=== PATIENT | male | born 1975 | race African-American/Black ===

== ENCOUNTER 2021-11-05 19:20 | Emergency (ER) | payer BC ==
[2021-11-05 20:53] LABS: ANION GAP 9.2 mEq/L (7-13); CHLORIDE,CL 99 mmol/L (98-107); SODIUM,NA 132 mmol/L (136-145)
[2021-11-05] MEDS ORDERED: Butorphanol 2 MG/ML SDV IVPUSH ONE (20:53)
[2021-11-05 21:08] LABS: METHAMPHETAMINES,URINE NEGATIVE (NEGATIVE)
[2021-11-05 21:09] LABS: AMPHETAMINES,URINE NEGATIVE (NEGATIVE); BARBITURATES,URINE NEGATIVE (NEGATIVE); BENZODIAZEPINE,URINE NEGATIVE (NEGATIVE); MDMA (ECSTASY), URINE NEGATIVE (NEGATIVE); METHADONE,URINE NEGATIVE (NEGATIVE); OPIATES,URINE NEGATIVE (NEGATIVE); OXYCODONE,URINE NEGATIVE (NEGATIVE); PHENCYCLIDINE,URINE NEGATIVE (NEGATIVE); TCA,URINE NEGATIVE (NEGATIVE)
== END 2021-11-05 22:19 | disposition home or self-care (01) ==
LOC: DL.ED 19:20
DX: G43.909 Migraine, unspecified, not intractable, without status migrainosus (principal); I11.0 Hypertensive heart disease with heart failure; E78.00 Pure hypercholesterolemia, unspecified; I50.9 Heart failure, unspecified; I25.2 Old myocardial infarction; Z95.5 Presence of coronary angioplasty implant and graft; Z79.82 Long term (current) use of aspirin; Z79.02 Long term (current) use of antithrombotics/antiplatelets; Z72.0 Tobacco use
CPT/HCPCS: 36415; 70450; 80053; 80305-QW; 81001; 85025; 96374; 99284-25; J0595

== ENCOUNTER 2021-11-18 11:55 | Emergency (ER) | payer BC, MEDICAID ==
[2021-11-18] MEDS ORDERED: Ketorolac 30 MG/ML SDV IM ONE (12:33)
[2021-11-18] MEDS ORDERED: Ondansetron 4 MG Tab.DIS PO ONE (12:35)
== END 2021-11-18 12:58 | disposition home or self-care (01) ==
LOC: DL.ED 11:55
DX: G43.909 Migraine, unspecified, not intractable, without status migrainosus (principal); I11.0 Hypertensive heart disease with heart failure; I50.9 Heart failure, unspecified; E78.00 Pure hypercholesterolemia, unspecified; I25.2 Old myocardial infarction; Z79.82 Long term (current) use of aspirin; Z79.899 Other long term (current) drug therapy
CPT/HCPCS: 96372; 99283; A9270; J1885

== ENCOUNTER 2021-11-26 22:13 | Emergency (ER) | payer MEDICAID ==
[2021-11-26] MEDS ORDERED: diphenhydrAMINE 50 MG/ML SDV IVPUSH ONE (23:04)
[2021-11-26] MEDS ORDERED: Metoclopramide 10 MG/2 ML SDV IVPUSH ONE (23:04)
[2021-11-27] MEDS ORDERED: Ketorolac 30 MG/ML SDV IVPUSH ONE (00:48)
== END 2021-11-27 01:04 | disposition home or self-care (01) ==
LOC: DL.ED 22:13
DX: G43.909 Migraine, unspecified, not intractable, without status migrainosus (principal); I11.0 Hypertensive heart disease with heart failure; I50.9 Heart failure, unspecified; E78.00 Pure hypercholesterolemia, unspecified; Z72.0 Tobacco use; Z79.82 Long term (current) use of aspirin; Z79.02 Long term (current) use of antithrombotics/antiplatelets; Z79.899 Other long term (current) drug therapy
CPT/HCPCS: 96374; 96375; 99283; J1200; J1885; J2765